=== PATIENT | male | born 1985 | race Caucasian/White ===

== ENCOUNTER 2023-09-25 15:10 | Outpatient (CLI) | payer OTHER | END 2023-09-25 15:11 | disposition home or self-care (01) | LOC: SCSRAD 15:10 | PROVIDERS: ATTEND Nurse Practitioner Family | DX: S29.012A Strain of muscle and tendon of back wall of thorax, initial encounter (principal); M41.9 Scoliosis, unspecified | CPT/HCPCS: 72072 ==